=== PATIENT | male | born 1965 | race Caucasian/White ===

== ENCOUNTER 2021-08-29 15:13 | Emergency (ER) | payer OTHER ==
[2021-08-29 16:07] LABS: #Basophils 0.1 thou/uL (0.0-0.2); #Lymphocytes 1.5 thou/uL (1.20-3.40); #Monocytes 1.4 thou/uL (0.11-0.59); #Neutrophils 12.2 thou/uL (1.40-6.50); %Basophils 0.4 % (0.0-1.0); %Eosinophils 0.3 % (0.0-10.0); %Lymphocytes 9.6 % (21.0-51.0); %Monocytes 9.3 % (0.0-10.0); %Neutrophils 80.4 % (42.0-75.0); Hemoglobin 15.6 g/dL (14.0-18.0); Mean Corpuscular HGB CONC 33.3 g/dL (32.0-36.0); Mean Corpuscular Hemoglobin 31.9 pg (27.0-31.0); Mean Corpuscular Volume 95.8 fL (78.0-98.0); Mean Platelet Volume 8.7 fL (7.4-10.4); Platelet Count 226 thou/uL (130-400); RBC Distribution Width 11.7 % (11.5-14.5); Red Blood Cell (RBC) Count 4.88 mill/uL (4.70-6.10); White Blood Cell (WBC) Count 15.2 thou/uL (4.8-10.8)
[2021-08-29] MEDS ORDERED: Sodium Chloride 0.9% 0 ML ONE (16:21)
[2021-08-29] MEDS ORDERED: Piperacillin/Tazobactam 4.5 GM VIAL ONE (16:21)
[2021-08-29 16:22] LABS: Anion Gap 15 mmol/L (10-20); BUN (Urea Nitrogen) 18 mg/dL (8.4-25.7); Calc. Creatinine Clearance 0 mL/min (70-130); Calcium 9.5 mg/dL (7.8-10.44); Carbon Dioxide 23 mmol/L (22-29); Chloride 105 mmol/L (98-107); Glucose 90 mg/dL (70-105); Sodium 139 mmol/L (136-145)
[2021-08-29] MEDS ORDERED: Sodium Chloride 0.9% 100 ML ONE (16:22)
[2021-08-29] MEDS ORDERED: Morphine 4 MG/ML VIAL ONE ×2 (16:27→19:58)
[2021-08-29] MEDS ORDERED: Sodium Chloride 0.9% 250 ML 250 ML ONE (16:42)
[2021-08-29] MEDS ORDERED: Vancomycin HCl 500 MG VIAL ONE (16:42)
[2021-08-29] MEDS ORDERED: Sodium Chloride 0.9% 1,000 ML ONE (16:47)
[2021-08-30] MEDS ORDERED: Morphine 4 MG/ML VIAL ONE (00:04)
== END 2021-08-30 01:35 | disposition short-term general hospital (02) ==
LOC: NAV ERS 15:13
DX: M65.9 Synovitis and tenosynovitis, unspecified (principal)
CPT/HCPCS: 80048; 83605; 85025; 87040; 96365; 96366; 96367; 96375; 96376; J2270; J2543; J3370; J3490; J7050